=== PATIENT | male | born 1935 | race Caucasian/White ===

== ENCOUNTER 2016-03-28 13:22 | Day surgery (SDC) | payer MEDICARE, OTHER ==
[~2016-03-28] VITALS: Ht 190.5 cm; Wt 104.3 kg
[~2016-03-28 13:22] MED LIST: ALBU18HF INH; ALBU8.5H2 INHALATION; AMLO10TA3 PO; ASPI-973 PO; BUPR2TAB SL; CHOL100043 PO; CHOL500051 PO; CYAN250014 PO; DULO30CA50 PO; FLUT12AE6 IH; GLIP5TAB21 PO; HYDR12.5 PO; LISI40TA PO; METF500T4 PO; METO-274 PO; fentaNYL-PF 50 mCg/mL 2 mL Inj IVPUSH PRN
[2016-03-28] MEDS ORDERED: Bupivacaine-MPF 0.25% 30 mL Inj ONE (13:23)
[2016-03-28 13:43] VITALS: BP 99/61; PULSE 95; RESP 16; O2SAT 96
[2016-03-28] MEDS: Clindamycin Inj 900 MG in IV Premix 1 EACH IV SCH ×2 (15:15→15:26)
[2016-03-28] MEDS: 0.9% Sodium Chloride 1,000 ML ONE ×2 (15:27→15:44)
[2016-03-28 15:53] VITALS: BP 133/79; PULSE 76; RESP 16; O2SAT 94
[2016-03-28 16:03] VITALS: BP 135/69; PULSE 67; RESP 16; O2SAT 98
[2016-03-28 16:20] VITALS: BP 113/65; PULSE 71; RESP 16; O2SAT 96
--- NOTE | 2016-03-28 16:49 | PCM.PROC ---
Procedure Note Date of Service: Mar 28, 2016 Pre Procedure Diagnosis: PROCEDURE: Spinal cord stimulation trial, dual lead placement. PREOPERATIVE DIAGNOSIS(ES) * Lumbar postlaminectomy syndrome PREOPERATIVE NOTE Procedure and potential complications were explained and informed signed consent was obtained. The skin was marked. The patient was taken to the fluoroscopy suite. DESCRIPTION The patient was placed prone on the fluoroscopic table. A pillow was placed under the abdomen to alleviate the lumbar lordosis. Image intensifier was centered to the thoracolumbar junction with visualization of L1-L2, L2-L3 interlaminar spaces. Skin was prepped and draped in the usual sterile fashion. Cardiovascular monitor was applied and. Skin was anesthetized with 1% lidocaine at the site of L2 pedicle bilaterally. A 25-gauge spinal needle 3-1/2 inches was inserted sequentially right and the left side and advanced or until it contacted the lamina of L2. The tract of the needle was anesthetized with lidocaine as well. From the right side paramedian approach a 14-gauge walitead needle was advanced and placed into the laminar space under fluoroscopic view using the loss of resistance device. Through the needle, 8 contact electrodes ([employer] [facility], [place], [place]) was then inserted and advanced into the epidural space from the right to the left and placed at T7-T8. In the same fashion, the needle was inserted from the left side and the same type of lead was positioned almost at the midline at T7-T8. The stimulation was performed. The needles were removed over the leads as well as stylets. The leads were glued to the skin with Dermabond. The fluoroscopy images were recorded on AP and lateral view also spiral localization of that final needle position was performed. The leads were fixed to the skin with the Sterifix device. The patient tolerated the procedure well. There was no complication observed during or immediately after the procedure. The patient was instructed to continue pain and activity diary without activity limitations. ANESTHESIA: Local 1 mg Versed. 150 mcg fentanyl EBL: None. No Blood Products Used COMPLICATIONS: None SPECIMENS: None The patient will be seen in 1 week for lead removal and conclusion of trial. Fluoroscopy time: See Radiology record Sonu Cesar,Sonu Michel MD Mar 28, 2016 16:49
== END 2016-03-28 23:59 | disposition home or self-care (01) ==
LOC: END 13:22
PROVIDERS: ATTEND Anesthesiology Pain Medicine
DX: M96.1 Postlaminectomy syndrome, not elsewhere classified (principal); J44.9 Chronic obstructive pulmonary disease, unspecified; E11.40 Type 2 diabetes mellitus with diabetic neuropathy, unspecified; Z79.84 Long term (current) use of oral hypoglycemic drugs
CPT/HCPCS: 63650; 99153; C1897; G0500; J2250; J3010; J7030